=== PATIENT | female | born 1970 | race Caucasian/White ===

== ENCOUNTER 2022-09-04 09:19 | Emergency (ER) | payer OTHER ==
[~2022-09-04] VITALS: Ht 157.5 cm; Wt 63.5 kg
[2022-09-04 09:34] VITALS: BP_SYST 117
--- NOTE | 2022-09-04 09:35 | NUR ---
Placed in room . Placed on conveyor monitor, blood pressure machine and pulse oximeter. To gown for exam. Side rails up.
--- NOTE | 2022-09-04 09:39 | NUR ---
BIBS WITH C/C OF LEFT SIDED CHEST PAIN RADIATING TO LEFT SHOULDER AND ARM. REPORTS PAIN STARTED LAST NIGHT AT APPROXIMATELY 1999. NO HEAVY ACTIVITY REPORTED. REPORTS CARRYING A 5 LB BOX UPSTAIRS LAST NIGHT. DENIES ANY N/V, SOB. REPORTS HX OF SMOKING AND HYPOTHYROID. VSS, AFEBRILE. 12L EKG DONE WITH NSR NOTED AT 88. PLACED ON FACILITY MANAGER HISTOLOGY WITH NSR NOTED. ON ROOM AIR WITH 98% O2 SAT. LUNGS CLEAR BILATERALLY. BP STABLE. NAD NOTED. REPORTS CHEST PAIN 05/31. DR. ELLIS AT BS TO ASSESS. PENDING ORDERS. WILL CONT TO MONITOR.
[2022-09-04] MEDS ORDERED: ACETAMINOPHEN 500 MG TABLET PO ONE (09:45)
--- NOTE | 2022-09-04 09:45 | NUR ---
ER DR. ELLIS EXAMINING PT
[2022-09-04 10:35] LABS: LYMPHOCYTES # (AUTO) 1.3 K/uL (1.0-5.5); MONOCYTES # (AUTO) 0.2 K/uL (0.0-1.0); MONOCYTES % (AUTO) 6.4 % (1.7-9.3); NEUTROPHILS # (AUTO) 2.2 K/uL (1.8-7.7)
[2022-09-04 10:59] LABS: EOSINOPHILS % (AUTO) 0.5 % (0.0-4.0); HEMATOCRIT 34.8 % (36-48); HEMOGLOBIN 12.3 g/dL (12.0-16.0); LYMPHOCYTES % (AUTO) 33.3 % (20.5-51.5); MEAN CORPUSCULAR HEMOGLOBIN 30 pg (27-31); MEAN CORPUSCULAR HGB CONC 35 % (32-36); MEAN CORPUSCULAR VOLUME 86 fL (79.0-98.0); NEUTROPHILS % (AUTO) 58.8 % (40.0-70.0); PLATELET COUNT (AUTO) 219 K/uL (130-430); RED BLOOD CELL COUNT(AUTO) 4.03 MIL/uL (4.2-6.2); WHITE BLOOD COUNT (AUTO) 3.8 K/uL (4.8-10.8)
[2022-09-04] MEDS ORDERED: D5/0.45 NS 1,000 ML IV SCH (12:45)
[2022-09-04] MEDS ORDERED: MORPHINE 2 MG/ML INJ. SYRINGE IVP PRN (12:45)
[2022-09-04] MEDS ORDERED: ONDANSETRON HCL 4 MG/2 ML VIAL IVP PRN (12:45)
[2022-09-04 13:36] LABS: ANION GAP 11 (5-15); CALCIUM 8.4 mg/dL (8.4-11.0); CHLORIDE 103 mmol/L (98-107); GLUCOSE 105 mg/dL (70-99); POTASSIUM 4.3 mmol/L (3.5-5.1); UREA NITROGEN, BLOOD 31 mg/dL (8-21)
[2022-09-04 13:37] LABS: ALANINE AMINOTRANSFERASE 26 U/L (12-78); ALBUMIN 3.9 g/dL (3.4-4.8); ASPARTATE AMINOTRANSFERASE 19 U/L (10-37); CREATININE 0.89 mg/dL (0.55-1.30); GFR AFRICAN AMERICAN 86 mL/min (>90); TOTAL BILIRUBIN 0.4 mg/dL (0.0-1.0)
[2022-09-04] MEDS ORDERED: PIPERACILLIN/TAZO 3.375 GM in NS 50 ML IV ONE (14:00)
[2022-09-04 14:20] VITALS: BP_SYST 111
--- NOTE | 2022-09-04 14:21 | NUR ---
PT CLEARED FOR DC BY DR. ELLIS. VSS, AFEBRILE. NAD NOTED. DENIES ANY FURTHER PAIN. PT RELATES HER CP TO STRESS AND ANXIETY. PT VERBALIZED UNDERSTANDING OF DC INSTRUCTIONS. PT AMBULATED OUT OF ED IN STABLE CONDITION.
[2022-09-04] MEDS ORDERED: PIPERACILLIN/TAZO 3.375 GM in NS 50 ML IV SCH (22:00)
== END 2022-09-04 14:21 | disposition home or self-care (01) ==
LOC: SED 09:19 → SMU 13:22 → UNDOADMIN 13:22 → SED 14:21
DX: R07.9 Chest pain, unspecified (principal); M25.512 Pain in left shoulder; F17.200 Nicotine dependence, unspecified, uncomplicated; F12.90 Cannabis use, unspecified, uncomplicated; Z79.899 Other long term (current) drug therapy
CPT/HCPCS: 36415; 71045; 73030; 80053; 84484; 85025; 85379; 93005; 99285